=== PATIENT | female | born 1955 | race Caucasian/White ===

== ENCOUNTER → 2021-08-05 09:45 | Outpatient (CLI) | payer OTHER, SELFPAY ==
[2021-08-05 12:21] LABS: COVID19 -Nasal RAPID Negative (Negative)
== END ==
PROVIDERS: PCP Physician Assistant Medical; Visit Provider Family Medicine Sleep Medicine
DX: Z20.822 Contact with and (suspected) exposure to COVID-19 (principal)
CPT/HCPCS: 87635; C9803

== ENCOUNTER 2021-08-06 06:30 | Inpatient (IN) | payer OTHER, SELFPAY ==
[2021-08-05 07:24] VITALS: BMI 28.0
[2021-08-06] VITALS (17 sets, daily range): BP systolic 106–140; BP diastolic 23–66; PULSE 72–115; RESP 9–19; TEMP 35.4–37; O2SAT 93–100; BMI 28.0
[2021-08-06] MEDS: ACETAMINOPHEN 325 MG TABLET 975 MG PO (07:03)
[2021-08-06] MEDS: LACTATED RINGERS 1,000 ML 42 ML IV (07:21)
--- NOTE | 2021-08-06 07:38 | PM.PREOP ---
Pre-operative Note COVID-19 COVID-19 status: Negative Criteria for continued procedure: Expected advancement of disease process, Possibility delay results in more complex future surgery or treatment, Increased loss of function, Continuing or worsening of significant or severe pain, Deterioration of the patient's condition or overall health and Delay expected to result in less-positive ultimate med/surg outcome Interval Note History & Physical reviewed/Exam performed by Physician: Yes Changes to H&P: No
[2021-08-06] MEDS: CEFAZOLIN 2 GM/20 ML SYRINGE IV ×2 (08:14→17:09)
--- NOTE | 2021-08-06 08:32 | SUR.OPER ---
Supine, head on gel donut. Arms padded with gel pads, tucked at sides, towel roll under shoulders. Safety belt at thigh. Legs uncrossed.
[2021-08-06] MEDS: BUPIVACAINE LIPOSOME 266 MG/20 ML VIAL INJ (08:42)
[2021-08-06] MEDS: BUPIVACAINE 0.25% (PF) 30 ML, EPINEPHrine 0.3 MG INJ (08:43)
--- NOTE | 2021-08-06 08:44 | DIET.CONS ---
Dietary Consultation Note Admission Date: 08/06/2021 06:30 RD Note: 66y F in surgery for cervical fusion. Please assign pt SOFT diet when diet orders come through secondary to cervical fusion post-op state. Ht: 160.02 cm Wt: 71.668 kg BMI: UBW: Last BM: 08/06/21 (08/06/21 06:55) Electronically Signed by: Melissa Oneil 08/06/21 08:44 Clinical Dietitian [address] [address]
--- NOTE | 2021-08-06 11:22 | P.OP_ITS ---
Operative Date/Time/Diagnoses Date of procedure: 08/06/21 Time of procedure: 07:45 Pre-op diagnosis: 1. C4-5, C5-6, C6-7 spinal stenosis with myelopathy 2. 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 C4-5 C5-6 C6-7 anterior cervical diskectomy and fusion 2. C4-5 C5-6 C6-7 anterior interbody cage placement 3. C4-5 C5-6 C6-7 anterior instrumentation with plate and screw placement in C4-C5-C6 and C7 vertebrae 4. Utilization of microsurgical technique and operating microscope Same procedure as scheduled: Yes Indications: Patient has been having chronic neck pain and worsening cervical radiculopathy. Patient has been having progressive myelopathic symptoms with poor balance near constant numbness in bilateral upper extremity and poor coordination and fine motor control bilateral upper extremity. Patient has been having difficulty performing activity of daily living. After discussing risks benefits of treatment options, patient elected proceed with surgery. Surgeon: Simone Belcher Sba Business Development Officer: Linda Alejandro Click Yes if Unassisted: No Anesthesia Type: General Operative Notes Closure Type: primary Specimen(s): none sent Prosthetic devices, grafts, tissues, transplants, or devices: Globus Extend Plate, Titanium cages Applied: catheter Estimated Blood Loss (mL): 50 Blood products transfused: none Procedure in detail: Patient was seen in the preoperative area. Risks and benefits of the surgery was discussed with the patient. Operative consent was obtained and placed in the chart. Patient was then taken to the operative room. Prophylactic antibiotic was given less than 0.5 hr prior to skin incision. General anesthesia was administered. Patient was placed into a supine position on her radiolucent table. Bilateral shoulders were taped down to allow proper C-arm imaging. Anterior cervical area was prepped and draped in a sterile fashion. Time-out was performed at this time. Using lateral C-arm imaging, the level between C4 and C7 was identified and marked on patient's neck. A oblique incision from midline towards medial border of sternocleidomastoid muscle was made. The platysma muscle was incised in line with skin incision. Metzenbaum scissor was used to develop the plane between the medial border of sternocleidomastoid d and the strap muscles medially. The carotid sheath and its contents were identified and protected behind the hand- held retractor during the entire case. The plane between the carotid sheath and strap muscles was developed with Metzenbaum scissors. Dissection was made down to the level of the anterior cervical fascia. Longus colli muscle was incised on the anterior aspect of vertebral bodies bilaterally from C4-C7. Spinal needle was placed into the C4-5 disc space and confirmed with lateral C-arm imaging. Using microsurgical technique and operative microscope, anterior cervical diskectomy was performed at C4-5 C5-6 and C6-7 level. This was done by removing the disc material, removing the anterior and posterior osteophytes posterior longitudinal ligaments along with performing bilateral foraminotomies at all 3 levels. Patient was found to have severe central and foraminal stenosis at all 3 levels. There were fragments of disc as well as hypertrophied and partially calcified ligamentum flavum causing severe central and foraminal stenosis. The disc fragments along with the entire discs at all three levels along with ligamentum flavum was resected. Full decompression was accomplished. Patient's stenosis was fully decompressed after decompression was completed. After the diskectomy was completed, 3 anterior interbody cages were obtained. The cages were packed with DBM bone grafting material. One cage each along with the bone grafting material was then packed into the interbody spaces from C4-C7 with one cage into each interbody level. After the cages were placed, the anterior cervical plate was stabilized to the C4-C7 vertebrae using 2 screws at each each level. Total 8 screws were placed. After confirming placement of the hardware with AP and lateral C-arm imaging, the screws were locked into the plate using the locking mechanism and torque limiting screwdriver. After the hardware was placed and confirmed with AP and lateral C-arm imaging, the wound was irrigated with sterile normal saline. The platysma muscle and the subcutaneous tissue was closed with 2-0 Vicryl. The skin was closed with 4-0 Monocryl and Steri-Strips. Patient tolerated the procedure well. Patient was transferred recovery room in stable condition. There were no complications. Complications: none Post-operative Condition: stable Disposition: PACU Plan for aftercare: Admit to inpatient hospital
--- NOTE | 2021-08-06 11:30 | DI.RAD.S_ITS ---
PROCEDURE: XR CERVICAL SPINE 2V OR 3V INDICATIONS: C4-5-6-7 ACDF TECHNIQUE: Intraoperative fluoroscopic views of the cervical spine were acquired COMPARISON: None. FINDINGS: Bones: Fluoroscopic images demonstrate anterior fusion and discectomy from C4 through C7. IMPRESSION: C4-C7 anterior fusion and discectomy. Dictated by: Ivon Duke M.D. on 08/06/2021 at 12:16 Approved by: Ivon Duke M.D. on 08/06/2021 at 12:17
[2021-08-06] MEDS: HYDROMORPHONE 2 MG INJ IV (11:58)
[2021-08-06] MEDS: hydrOXYzine 50 MG/ML INJ 25 MG IM (12:00)
[2021-08-06] MEDS: OXYCODONE IR 5 MG TABLET PO ×2 (12:17→19:46)
[2021-08-06] MEDS: SODIUM CHLORIDE 0.9% 1,000 ML 100 ML IV ×2 (12:30→23:56)
--- NOTE | 2021-08-06 15:05 | OT.IPNOTE ---
Pt just up to the floor recently and asleep, to check on pt for OT eval tomorrow.
--- NOTE | 2021-08-06 16:47 | PT.IIE ---
Addendum entered and electronically signed by Rachel Anne PT 08/07/21 08:18: Correction to assessment summary: Bobbin Hauler strength impaired on the right UE - not on the left as originally documented. Original Note: Current Diagnoses Other spondylosis with myelopathy, cervical region (08/06/21) Spinal stenosis, cervical region (08/06/21) Surgery Performed Operation Date: 08/06/21 07:45 Actual Procedures p C4-5, C5-6, C6-7 ACDF w. anterior instrumentation - Simone Belcher MD Medical History (Last Reviewed 08/06/21 @ 06:54 by Eusebia Ramos RN) Arthritis Bronchitis (07/29/21) Cervical radiculopathy Easy bruisability HLD (hyperlipidemia) HTN (hypertension) Lumbar radiculopathy Melanoma (~2012) Physical Therapy Inpatient Evaluation/Re-Eval M1 PT/OT-IP Prior Functional Status Start: 08/06/21 16:16 Freq: NEEDED Status: Active Protocol: Document 08/06/21 16:47 AW (Rec: 08/06/21 17:18 AW [id number]) Medical Review Prior Functional Status Medical History Reviewed Yes Communication Pt is an effective verbal communicator. Mobility and Gait Pt can walk grocery store distances without assistive device. She is sometimes limited by left hip pain and she will use a cane during those times. She reports two serious/injurious falls in the past three years. Activities of Daily Living and IADL's Pt manages her own ADL''s but admits that her UE coordination has decreased in the past few months and she struggles with buttoning, zipping, and writing. She is right hand dominant. Social History Household Members family Living Arrangements House Number of Floors (Floors) One Floor Number of Stairs To Enter/Railing? Pt plans to stay with her sister for a week at discharge . Details in this note refer to that environment. There are 3 MARIA ISABEL with R rail ascending. 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 Her son is disabled but able to help around the house. Pt will discharge to her sister, Ольга quinones. M2 PT-IP Current Condition Start: 08/06/21 16:16 Freq: NEEDED Status: Active Protocol: Document 08/06/21 16:47 AW (Rec: 08/06/21 17:18 AW [id number]) Physical Therapy Current Condition Current Condition Evaluation Date 08/06/21 Treatment Diagnosis s/p C4-7 ACDF; dec independence with ADL's; falls Onset Date 08/06/21 M3 PT-IP Subjective Start: 08/06/21 16:16 Freq: NEEDED Status: Active Protocol: Document 08/06/21 16:47 AW (Rec: 08/06/21 17:18 AW [id number]) Subjective Physical Therapy Visit Type Type Initial Evaluation Visit Start Time 16:22 Visit Stop Time 16:47 Total Visit Minutes 25 Notes Pt's son, Oskar, was present throughout evaluation. Physical Therapy Visit Comments Patient Comments Pt is willing to participate with PT Patient Goals Discharge to her sister's house with assist. Therapy Pain Assessment Pain When Pain Assessed During Mobility Pain Present Pain Present Pain Reported Location neck Intensity 6 Scale Used Numeric (0 - 10) Pain Management Techniques Distraction,Modification of Treatment,Re-positioning M4 PT-IP Mobility and Gait Start: 08/06/21 16:16 Freq: NEEDED Status: Active Protocol: Document 08/06/21 16:47 AW (Rec: 08/06/21 17:18 AW [id number]) PT-Bed Mobility Assessment Rolling Type of Rolling Log Rolling,Roll to Right Level of Assist Minimal Assistance Supine to Sit Supine to Sit Minimal Assistance Sit to Supine Sit to Supine Contact Guard Assistance PT-Transfer Assessment Sit to and From Stand Sit to and from Stand Minimal Assistance,1 Person Assistance,2 Person Assistance Equipment Transfer Assistive Device Gait Belt,Front Wheeled Walker Orthotic/Prosthetic Devices or Brace: Yes Comments Mobility Comments Pt was lying in bed as PT arrived. BP was 111/41 HR 86 SpO2 94% on room air. Pt agreed to sit up EOB, rolling to her right and completing SL to sit min A and cues for neutral neck. She scooted forward to get feet on the floor. BP sitting was 110/35 HR 85. Pt denied lightheadedness or nausea. She attempted to place her hands on the walker but was unable to control RUE, needing min A/ [place] assist for placement. Pt was unable to maintain vision care associate on the walker with RUE. PT assisted pt with handhold as she stood min A. Pt was frustrated with inability to control her right arm and requested return to bed. She sat and reverse log-rolled to supine CGA. She was left with call light and tray table in reach. Her son remained in the room. Gait Assessment Comments Gait Comments Gait not assessed due to pt numbness. Stair Climbing Assessment Comments Stair Climbing Comments Not assessed. PT-Balance Assessment Sitting Balance and Reactions Static Sitting Balance Ability Good Dynamic Sitting Balance Ability Fair Standing Balance and Reactions Static Standing Balance Ability Fair Device Used FWW M5 PT-IP Objective Assessments Start: 08/06/21 16:16 Freq: NEEDED Status: Active Protocol: Document 08/06/21 16:47 AW (Rec: 08/06/21 17:18 AW [id number]) Orientation Orientation/Cognition Level of Alertness Alert Orientation Name,Day of Week,Place, Situation Language Function Ability No Deficits Noted Safety Awareness Understands Safety Issues Memory Description No Deficits Noted Gross Range of Motion Upper Extremity ROM Assessment Within Functional Limits Strength Upper Extremity Strength Assessment Bilaterally Impaired Shoulder R 3-/5; L 4/5 Wrist R 3+/5; L 4/5 Lower Extremity Strength Assessment Bilaterally Impaired Comments Strength Comments Grossly 4/5 Coordination Assessment Gross Coordination Gross Coordination Impaired Assessment Coordination Comments Pt unable to functionally elevate right arm or use right hand to vision care associate objects. Sensation Assessment Sensation Gross Sensation Right UE Impaired Light Touch Impaired Proprioception (Position) Impaired Sensation Description Numbness Muscle Tone Muscle Tone WNL Yes M6 PT-IP Treatment Start: 08/06/21 16:16 Freq: NEEDED Status: Active Protocol: Document 08/06/21 16:47 AW (Rec: 08/06/21 17:18 AW [id number]) Physical Therapy Treatment Education Education Provided Precautions,Post-Op Packet, Safety Other Treatments Other Treatment Performed Educated pt on PT plan of care , post op precautions, and recommendation for soft collar . M7 PT-IP Assessment and Plan Start: 08/06/21 16:16 Freq: NEEDED Status: Active Protocol: Document 08/06/21 16:47 AW (Rec: 08/06/21 17:18 AW [id number]) PT Summary Assessment and Plan Potential Rehabilitation Potential Good Status of Condition at Evaluation Unstable Summary Impairments Pain,Strength,Coordination, Sensation,Bed Mobility, Transfers,Gait Assessment Summary Ruth is a 66 yo woman seen for PT evaluation on POD0 following C4-7 ACDF. Preoperatively, she had MRI evidence of myelopathy; clinically, she had BUE weakness and incoordination ( right more affected than left) . She is independently mobile at baseline but occasionally uses a SPC if her left hip pain is worse than usual. On limited assessment today, pt was unable to functionally elevate her right arm or to vision care associate objects with her left hand, complaining of numbness and weakness which seemed worse than before surgery. RN was informed. PT will re- assess in the morning for safe discharge plan. At this time, pt plans to discharge to her sister's house and her sister will be able to care for her. Goals Bed Mobility Goal Independent Transfer Goal Standby Assistance,Front Wheeled Walker Gait Goal Standby Assistance,Front Wheel Walker Gait Distance 200 Other Goals -- up/down 3 steps with R rail ascending -- improve transfers and gait to SBA with SPC or no AD Days to Meet Goals 3 Frequency of Treatment Frequency Of Treatment Twice a Day Treatment Plan Physical Therapy Treatment Plan Bed Mobility Training,Transfer Training,Gait Training, Therapeutic Exercise,Balance Retraining,Post Op Education, Discharge Planning,Hot or Cold Pack,Neuromuscular Re-ed, Coordination Retraining Other Recommendations and Next Treatment re-assess RUE strength; assess Focus transfers and gait Precautions Cervical Spine Precautions Soft Collar for Comfort,No Heavy Lifting,Log Roll Other Precautions falls Recommendations To Nursing Amount of Assist Needed 1 Person Assist Discharge Recommendations PT Discharge Recommendations Home with Assistance,Home with 24/7 Assist Available Transportation Needs at Discharge Private Vehicle
[2021-08-06] MEDS: HYDROMORPHONE 0.5 MG INJ IV ×2 (18:08→20:58)
[2021-08-06] MEDS: hydrOXYzine pamoate 25 MG CAPSULE PO (19:45)
[2021-08-06] MEDS: DOCUSATE 100 MG CAPSULE PO (20:33)
[2021-08-06] MEDS: SENNOSIDES 8.6 MG TABLET 17.2 MG PO (20:33)
[2021-08-06] MEDS: GABAPENTIN 400 MG CAPSULE 800 MG PO (20:34)
[2021-08-07] MEDS: CEFAZOLIN 2 GM/20 ML SYRINGE IV (01:24)
[2021-08-07] MEDS: OXYCODONE IR 5 MG TABLET PO ×4 (01:28→14:18)
[2021-08-07 01:35] VITALS: BP 129/61; PULSE 76; RESP 16; TEMP 36.5; O2SAT 93
[2021-08-07] MEDS: HYDROMORPHONE 0.5 MG INJ IV (02:10)
[2021-08-07 07:00] VITALS: BP 138/59; PULSE 86; RESP 20; TEMP 36.7; O2SAT 94
--- NOTE | 2021-08-07 07:33 | PM.DS.1 ---
History of Present Illness History of Present Illness Date Patient Seen: 08/07/21 Time Patient Seen: 07:34 Chief complaint: Neck pain Narrative: Patient's neck pain is [id number]. Denies fever or chills. No nausea or vomiting. She does notice weakness with her right biceps. Numbness and tingling bilateral upper extremities present prior to surgery. No shortness of breath or difficulty swallowing. Otherwise without complaints. Discharge Providers Provider Date of admission: 08/06/21 06:30 Discharge Date: 08/07/21 Primary care physician: Sailaja Augustine PA-C Consults: 08/02/21 12:59 Consult to Anesthesiology Routine Comment: Consulting Provider: Anesthesiologist Reason for consultation: PAC courtesy re: Abnormal pre-op ECG 08/06/21 13:11 Consult to Occupational Therapy Evaluate & Treat Comment: Physician Instructions: Evaluate and treat Consult to Physical Therapy Evaluate & Treat Comment: Physician Instructions: Evaluate and Treat Discharge provider: Red Pantoja PA-C Summary Hospital Course Discharge Diagnosis: 1. C4-5, C5-6, C6-7 spinal stenosis with myelopathy 2. C4-5, C5-6, C6-7 spondylosis with myelopathy Hospital Course: .? C4-5 C5-6 C6-7 anterior cervical diskectomy and fusion 2.? C4-5 C5-6 C6-7 anterior interbody cage placement 3.? C4-5 C5-6 C6-7 anterior instrumentation with plate and screw placement in C4-C5-C6 and C7 vertebrae 4.? Utilization of microsurgical technique and operating microscope Same procedure as scheduled: Yes Indications: Patient has been having chronic neck pain and worsening cervical radiculopathy. Patient has been having progressive myelopathic symptoms with poor balance near constant numbness in bilateral upper extremity and poor coordination and fine motor control bilateral upper extremity. Patient has been having difficulty performing activity of daily living.? After discussing risks benefits of treatment options, patient elected proceed with surgery. Surgeon: Simone Belcher Fertilizer Applicator: Linda Alejandro Click Yes if Unassisted: No Anesthesia Type: General Operative Notes Closure Type: primary Specimen(s): none sent Prosthetic devices, grafts, tissues, transplants, or devices: Globus Extend Plate, Titanium cages Applied: catheter Estimated Blood Loss (mL): 50 Blood products transfused: none Patient admitted for the above-mentioned procedure. Patient consented to the same. Patient taken operating room underwent cervical fusion on August 06, 2021. Patient back in her room recovering well as in stable condition. Patient will be discharged home today in stable condition. Status at Discharge Cognitive/behavioral status at discharge: at baseline, oriented Functional status at discharge: independent ambulation Overall status at discharge: patient is progressing back to baseline Exam Vital Signs (past 8 hours): - 08/07/21 01:35 Temperature 97.7 F Pulse Rate 76 Respiratory Rate 16 Blood Pressure 129/61 Pulse Oximetry 93 Oxygen Delivery Method Nasal Cannula Oxygen Flow Rate 1 Narrative Exam Narrative: 66-year-old female resting comfortably in bed in no apparent distress. Dressing is Clean, dry, intact.. Soft collar is in place. She has 3/5 strength with elbow flexion on the right, 5/5 on left. She has 5/5 strength with elbow extension, wrist flexion and extension, finger flexion bilaterally. Sensation is slightly diminished to the medial/ulnar right hand. Sensation grossly intact to light touch otherwise right upper and left upper extremities. Const General: cooperative and comfortable Orientation: alert Resp Effort & Inspection: normal respiratory effort PFSH Medical History Arthritis Bronchitis (07/29/21) Cervical radiculopathy Easy bruisability HLD (hyperlipidemia) HTN (hypertension) Lumbar radiculopathy Melanoma (~2012) Surgical History History of 2 sections History of bunionectomy of right great toe Hx of cholecystectomy Hx of removal of cyst Hx of tonsillectomy Social History household members: family Smoking Status: Former smoker alcohol intake: current Discharge Assessment & Plan Assessment and Plan Assessment: Patient progressing as expected status post cervical fusion Plan of Treatment: Soft collar for comfort Multimodal pain management Discharge home today in stable condition Follow-up scheduled [facility] in 2 weeks Discharge Plan Discharge Plan Patient Disposition: Home Provider Discharge Comment: Discharge home after physical therapy Discharge orders & Medications Prescriptions: New acetaminophen 325 mg Tablet 650 mg PO Q6HR PRN (Reason: Pain, Mild (1-3)) Qty: 60 0RF docusate sodium 100 mg Capsule 100 mg PO BID Qty: 20 0RF oxycodone 5 mg Tablet 5 mg PO Q3HR PRN (Reason: Pain, Moderate (4-6)) Qty: 40 0RF hydroxyzine pamoate 25 mg Capsule 25 mg PO Q4HR PRN (Reason: Nausea And Vomiting) Qty: 20 0RF Continued aspirin 81 mg Tablet,Delayed Release (Dr/Ec) 81 mg PO DAILY 0RF gabapentin 800 mg Tablet 800 mg PO TID 0RF amlodipine 10 mg Tablet 10 mg PO DAILY 0RF albuterol sulfate 90 mcg/actuation Hfa Aerosol Inhaler 2 puff INHALATION Q4-6H PRN (Reason: Shortness Of Breath) 0RF losartan 100 mg Tablet 100 mg PO DAILY 0RF Discontinued ibuprofen 800 mg Tablet 800 mg PO BID 0RF Follow up/Referrals: Sailaja Augustine PA-C [Primary Care Provider] - Simone Belcher MD [Physician] - (2 weeks) Diet/Activity/Treatments Diet: Diet as Tolerated Activity: Limit bending, twisting, lifting Skin/Wound/Dressing Care Report to your healthcare provider any signs of infection, such as:: chills, fever, increased pain, unusual drainage and unusual redness Dressing: May shower, keep dressing clean and dry Visit Report/Discharge Packet Instructions: DI for Prescription Opioid Use, DI for Anterior Cervical Discectomy and Fusion Stand Alone Forms: Surgery Discharge Discharge Data Primary Care Provider: Sailaja Augustine
[2021-08-07] MEDS: DOCUSATE 100 MG CAPSULE PO (07:56)
[2021-08-07] MEDS: GABAPENTIN 400 MG CAPSULE 800 MG PO ×2 (07:56→14:18)
[2021-08-07] MEDS: hydrOXYzine pamoate 25 MG CAPSULE PO ×2 (07:56→12:58)
--- NOTE | 2021-08-07 09:03 | OT.IP.EVAL ---
Current Diagnoses Other spondylosis with myelopathy, cervical region (08/06/21) Spinal stenosis, cervical region (08/06/21) Surgery Performed Operation Date: 08/06/21 07:45 Actual Procedures p C4-5, C5-6, C6-7 ACDF w. anterior instrumentation - Simone Belcher MD Past Medical History (Last Reviewed 08/07/21 @ 07:37 by Red Pantoja PA-C) Arthritis Bronchitis (07/29/21) Cervical radiculopathy Easy bruisability History of 2 sections History of bunionectomy of right great toe HLD (hyperlipidemia) HTN (hypertension) Hx of cholecystectomy Hx of removal of cyst Hx of tonsillectomy Lumbar radiculopathy Melanoma (~2012) Surgical History (Last Reviewed 08/07/21 @ 07:37 by Red Pantoja PA-C) History of 2 sections History of bunionectomy of right great toe Hx of cholecystectomy Hx of removal of cyst Hx of tonsillectomy Occupational Therapy Inpatient Evaluation/Re-Eval M1 PT/OT-IP Prior Functional Status Start: 08/06/21 16:16 Freq: NEEDED Status: Active Protocol: Document 08/07/21 09:03 [facility] (Rec: 08/07/21 12:50 [facility] [id number]) Medical Review Prior Functional Status Medical History Reviewed Yes Communication Pt is an effective verbal communicator. Mobility and Gait Pt can walk grocery store distances without assistive device. She is sometimes limited by left hip pain and she will use a cane during those times. She reports two serious/injurious falls in the past three years. Activities of Daily Living and IADL's Pt manages her own ADL''s but admits that her UE coordination has decreased in the past few months and she struggles with buttoning, zipping, and writing. She is right hand dominant. Prior Functional Level (Other details) Pt to stay at her sister's house. Social History Household Members family Living Arrangements House Number of Floors (Floors) One Floor Number of Stairs To Enter/Railing? 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 Her son is disabled but able to help around the house. Pt will discharge to her sister, Shazia's house. M2 OT-IP Current Condition Start: 08/07/21 12:36 Freq: Status: Active Protocol: Document 08/07/21 09:03 [facility] (Rec: 08/07/21 12:50 [facility] [id number]) Occupational Therapy Current Condition Current Condition Evaluation Date 08/07/21 Treatment Diagnosis S/p C4-5, C5-6, C6-7 ACDF Diagnosis Onset Date 08/06/21 Post Operative Precautions Cervical Spine Precautions Soft Collar for Comfort,No Heavy Lifting,Log Roll M3 OT- IP Subjective and Pain Start: 08/07/21 12:36 Freq: Status: Active Protocol: Document 08/07/21 09:03 [facility] (Rec: 08/07/21 12:50 [facility] [id number]) OT- Subjective Occupational Therapy Visit Type Type Initial Evaluation Visit Start Time 09:03 Visit Stop Time 10:00 Total Visit Minutes 57 Occupational Therapy Visit Comments Patient Comments Pt wanting to get up. Pt's sister present during the session. Patient/Caregiver Goals TO go home. OT Pain Assessment Pain When Pain Assessed At Rest Pain Present Pain Present Pain Reported Location neck Intensity 8 Scale Used Numeric (0 - 10) M4 OT- IP ADL's Start: 08/07/21 12:36 Freq: Status: Active Protocol: Document 08/07/21 09:03 [facility] (Rec: 08/07/21 12:50 [facility] [id number]) OT [id number] Comments OT Self-Feeding Comments Educated on safety suggestions after ACDF, chew food thoroughly, sit upright, etc. .. OT ADL-Oral Care Comments Oral Care Comments Educated easier to spit into a cup at this time. OT ADL-Dressing Comments OT Dressing Comments Pt not able to reach up with right hand to assist to rosa/ doff the soft collar and will need assist from her sister. OT ADL-Toileting Comments OT Toileting Comments Pt not having to go at this time. OT ADL-Bathing Comments OT Bathing Comments NOt performed. M5 OT- IP IADL's Start: 08/07/21 12:36 Freq: Status: Active Protocol: Document 08/07/21 09:03 [facility] (Rec: 08/07/21 12:50 [facility] [id number]) OT-Instrumental Activities of Daily Living Home Safety Awareness Home Safety Comments At this time due to pt's decreased balance, functional use of RUE would be best for her sister to assist with all ADl and IADL needs. M6 OT- IP Functional Cognition Start: 08/07/21 12:36 Freq: Status: Active Protocol: Document 08/07/21 09:03 [facility] (Rec: 08/07/21 12:50 [facility] [id number]) Cognitive Factors Limiting Selfcare Function Cognitive Ability Level of Alertness Alert,Drowsy Attention Span Ability Capable of Focused Attention, Capable of Sustained Attention Ability to Follow Commands Able to Follow One Step Commands with Increased Time, Able to Follow One Step Commands with Repetition Cognitive Comments Cognitive Assessment Comments Pt a bit groggy and needing step by step commands and also a little impulsive when getting up. OT- Vision and Hearing OT- Vision Assessment Visual Acuity Glasses All The Time M7 OT- IP Mobility and Balance Start: 08/07/21 12:36 Freq: Status: Active Protocol: Document 08/07/21 09:03 [facility] (Rec: 08/07/21 12:50 [facility] [id number]) OT- Bed Mobility Assessment Rolling Type of Rolling Roll to Right Level of Assistance Standby Assistance,Contact Guard Assistance Supine to Sit Supine to Sit Assist Standby Assistance,Minimal Assistance Sit to Supine Sit to Supine Assist Standby Assistance,Contact Guard Assistance Scooting Scooting to Edge of Bed Contact Guard Assistance OT-Transfer Assessment Sit to and From Stand Sit to and from Stand Moderate Assistance Transfers Transfer Ability Moderate Assistance Technique Transfer Destination Bed,Chair Transfer Technique Stand Step Pivot Devices Transfer Assistive Devices Gait Belt,Front Wheeled Walker Comments Mobility Comments ACE to help get upright from side lying as unable to push up with her right UE initially. MODA to stand and assist to hold her right hand on the FWW and assist to help push on the right side of the FWW. Pt was very unsteady on her feet. OT- Balance Assessment Sitting Balance and Reactions Static Sitting Balance Ability Fair Dynamic Sitting Balance Ability Poor Standing Balance and Reactions Static Standing Balance Ability Poor M8 OT- IP Objective Assessments Start: 08/07/21 12:36 Freq: Status: Active Protocol: Document 08/07/21 09:03 [facility] (Rec: 08/07/21 12:50 [facility] [id number]) OT Gross Range of Motion Upper Extremity Range of Motion Assessment Right Impaired OT Strength Upper Extremity Strength Assessment Right Impaired Comments Strength Comments RUE 3-/5 to 3+/5 OT Sensation Assessment Comments Summary Comments Intact for light touch, however complaining of numbness in right UE. M9 OT- IP Assessment and Plan Start: 08/07/21 12:36 Freq: Status: Active Protocol: Document 08/07/21 09:03 [facility] (Rec: 08/07/21 12:50 [facility] [id number]) OT Summary Assessment and Plan Potential Rehabilitation Potential Good Analytic Complexity at Evaluation Low Summary OT Impairments Pain,Range of Motion,Strength, Balance,Functional Cognition, Functional Mobility,Self- Feeding,Grooming,Dressing, Toileting,Bathing,Toilet Transfers,Shower Transfers, Activity Tolerance Progress Towards Goals Slow Progress due to Pain,Slow Progress due to Medical Issues,Slow Progress due to Activity Tolerance Assessment Summary Pt low complexity and now having difficulty to use her RUE and and needing SAVOONGA assist to help hold her right hand on the FWW and assist to help guide the right side of the FWW. Pt is very groggy and having difficulty to follow directions and is a little impulsive. Pt would possibly benefit form short rehab stay pending progress and caregiver training with her sister. Goals Self-Feeding Goal Independent Grooming Goal Independent Dressing Goal Independent Toileting Goal Independent Bathing Goal Independent Toilet Transfer Goal Independent Shower Transfer Goal Independent Patient/Caregiver Education Goal Caregiver Independent Assisting Patient Days to Meet Goals 57 Frequency of Treatment Frequency Of Treatment Once a Day Treatment Plan OT Treatment Plan ADL Training,Functional Cognition Training,Functional Mobility,Patient/Family Education,Discharge Planning Other Treatment Recommendations and Next shower if still here Treatment Focus Discharge Recommendations OT Discharge Recommendations Home with 17/11 Assist Available,Home Health,SNF Rehab,Home vs SNF Transportation Needs at Discharge Private Vehicle,Wheelchair/ Cabulance
--- NOTE | 2021-08-07 10:26 | CM.DANOTE ---
DCP: Case received, EMR reviewed. Met with patient in her room. Sister was at bedside. Introduced self and role. Was able to obtain information regarding patient's baseline activity level prior to her surgery, as well as her current living situation. DCP assessment completed with information currently available. Patient is a 66 year old female who admitted yesterday morning to the care of the orthopedic team. PCP: Dr. Augustine. Payer: confirmed: [employer]. Patient came to the hospital for a surgical procedure. Patient had C4-5, C5-6, C6-7 anterior cervical diskectomy and fusion. Patient has history of spondylosis with myelopathy. Met with patient in her room. Her sister was also at bedside. Patient resides in [place] with her son, Oskar. She will be staying with her sister in [place] while she is recuperating from surgery. They have 2 steps to get into the home. Patient is a . At her baseline, she is independent. P: Patient has discharge orders for home today pending working with P.T. Tricia Garg RN/Photograph Developer Discharge Planning/Care Management Advanced directive, confirm from FAMILY Start: 08/06/21 16:20 Freq: Q24H Status: Active Protocol: Document 08/06/21 16:20 (Rec: 08/06/21 22:24 [id number]) Advance Directive, confirm on record Time 20:00 Person contacted patient Copy received Yes Document 08/07/21 03:57 (Rec: 08/07/21 03:57 [id number]) Advance Directive, confirm on record Time 20:00 Person contacted patient Copy received Yes Discharge Assessment Start: 08/07/21 10:24 Freq: Status: Active Protocol: Document 08/07/21 10:24 (Rec: 08/07/21 10:26 [id number]) Discharge Planning Assessment Assigned Insurance Collector Tricia Garg RN/Photograph Developer Advance Directives? Yes Advance Directives on File No History Provided By Patient,Medical Record Prior Living Arrangements House Household Members family Type of transporation used prior to Drives own vehicle admit Independent with ADL's Yes Is patient alert and oriented? Yes Barriers to Discharge No Comment Patient will be staying at her sister's house in [place]. Discharge Plan Home Transportation Arrangement Sister Referrals Initiated None needed Whiteboard Updated in Patient Room with Yes name and ext. # of Insurance Collector Review Status In Process Next Review Type Continued Stay Review Pre-Anesthesia Assessment Start: 08/02/21 11:48 Freq: Status: Active Protocol: Document 08/05/21 07:24 [facility] (Rec: 08/02/21 12:59 CAB [id number]) Pre-Anesthesia Assessment PAC Comment Pre-op ECG reviewed with neto owusu to proceed Patient Information Reviewed Via Phone Assessment Assessment Completed With Patient Diagnostic Results BMP/CMP,CBC,EKG Comment Outside labes/ECG scanned, COVID screen @ [facility] 08/05/21 Primary Care Provider Sailaja Augustine Seen Specialist in Last 12 Months Yes Specialist Seen Orthopedist,Other Comment Neuro:Dr. Romero. 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 No Does patient have TY/SOB Yes: Only when sick Hx Sleep Apnea No Currently Taking a Beta Danny No Hx Chest Pain No Hx SOB Yes Hx Syncope or Dizziness No Anti-Coagulant Therapy No Has a Air Compressor Engineer No Cardiac Testing No Hx Pacemaker/ICD No Pacemaker Rep Required? No Diet Type At Home Regular dysphagia No Bladder Pattern Urgency Urinary Catheter Present No Hx Urinary Self Catheterization No Diabetes No Patient No Lactating No Presence of External or Internal Medical Yes: Right great toe Devices Have you had any close contact with No someone diagnosed with COVID-19? Received a COVID vaccine? No Marital Status / Lives With family Prior Living Arrangements House Number of Floors (Floors) One Floor Support System Child/Children,Sibling(s) Does the Patient Have Assistance After Yes: Pt will go to sister's Surgery house for assistance at DC Patient Discharge Plan Description Other Comment Pt not advised on length of stay per surgeon Feels Safe in Current Environment Yes Been Physically Hurt or Threatened By a No Person in Current Environment Do you have thoughts of harming yourself None or others? Are you currently considering suicide? No Do you have a plan to hurt yourself or No Plan others? Do You Have Any Spiritual Beliefs That No May Affect Your HC Choices? Do You Have Any Cultural Practices That No May Affect Your HC Choices? Who Can We Speak to About Patient's Care Family, friends Identifying Code for Release of Patient Declines to issue Information Health Care Proxy/Next of Kin Magaly (Daughter in-law) Elías (son) Health Care Proxy Phone Number Magaly: [phone] Elías: [phone] Emergency Contact Name Magaly (Daughter in-law) Elías (son) Emergency Contact Phone Number Magaly: [phone] Elías: [phone] Advance Directives? Yes Advance Directives on File No Requested Patient Bring Advanced Yes Directives DOS Power of Traveling Sales Executive Yes Power of Traveling Sales Executive Name Magaly Power of Traveling Sales Executive PAC Instructions Durable medical equipment, Medications to take/avoid, Nasal antibiotic,No ETOH/ petroleum product on skin DOS, NPO,Post-op transportation,Pre -surgical wash,Sensory aids, Sturdy shoes/comfortable clothes,Do not bring valuables and remove jewelry
[2021-08-07 10:39] VITALS: BP 127/56; PULSE 70
[2021-08-07] MEDS: LOSARTAN 50 MG TABLET 100 MG PO (10:39)
[2021-08-07] MEDS: AMLODIPINE 5 MG TABLET 10 MG PO (10:43)
[2021-08-07 11:00] VITALS: BP 126/61; PULSE 68; RESP 20; TEMP 36.6; O2SAT 96
--- NOTE | 2021-08-07 12:08 | PT.IPTN ---
Current Diagnoses Other spondylosis with myelopathy, cervical region (08/06/21) Spinal stenosis, cervical region (08/06/21) Surgery Performed Operation Date: 08/06/21 07:45 Actual Procedures p C4-5, C5-6, C6-7 ACDF w. anterior instrumentation - Simone Belcher MD Physical Therapy Treatment Note M2 PT-IP Current Condition Start: 08/06/21 16:16 Freq: NEEDED Status: Active Protocol: Document 08/07/21 11:44 SP (Rec: 08/07/21 14:09 SP [id number]) Physical Therapy Current Condition Current Condition Evaluation Date 08/06/21 Treatment Diagnosis s/p C4-7 ACDF; dec independence with ADL's; falls Onset Date 08/06/21 M3 PT-IP Subjective Start: 08/06/21 16:16 Freq: NEEDED Status: Active Protocol: Document 08/07/21 11:44 SP (Rec: 08/07/21 14:09 SP [id number]) Subjective Physical Therapy Visit Type Type Treatment Note Visit Start Time 11:44 Visit Stop Time 12:08 Total Visit Minutes 24 Notes Pt's sister present, donned gait belt, completed caregiver training, provided all physical assist required throughout tx. Number of PROTECTION CONSULTANT Visits 1 Physical Therapy Visit Comments Patient Comments Pt is willing to participate with PT Patient Goals Discharge to her sister's house, will assist her. Therapy Pain Assessment Pain When Pain Assessed During Mobility Pain Present Pain Present Pain Reported Location neck Intensity 5 Scale Used Numeric (0 - 10) Description With Movement Pain Behaviors Facial Grimacing Pain Management Techniques Distraction,Modification of Treatment,Re-positioning, Timing of Activity with Medications M4 PT-IP Mobility and Gait Start: 08/06/21 16:16 Freq: NEEDED Status: Active Protocol: Document 08/07/21 11:44 SP (Rec: 08/07/21 14:09 SP [id number]) PT-Bed Mobility Assessment Rolling Type of Rolling Roll to Right Level of Assist Standby Assistance Supine to Sit Supine to Sit Contact Guard Assistance, Minimal Assistance Sit to Supine Sit to Supine Standby Assistance Scooting Scooting to Edge of Bed Standby Assistance PT-Transfer Assessment Sit to and From Stand Sit to and from Stand Contact Guard Assistance, Minimal Assistance,1 Person Assistance,Use of Upper Extremities Equipment Transfer Assistive Device Gait Belt,Front Wheeled Walker Orthotic/Prosthetic Devices or Brace: Yes Transfers Transfer Destination Bed,Chair,Toilet Transfer Technique pt ambulated using FWW Transfer Ability Level of Assist Contact Guard Assistance, Minimal Assistance,1 Person Assistance,Use of Upper Extremities Comments Mobility Comments Pt was seated in chair when arrived, sister in room. Sister donned gait belt around trunk. Scoot to EOChair using BUE, support for handoverhand RUE for stability scoot/stand and intial gait, sit>stand Min A initially, gait to bathroom w/FWW little trunk sways but pt stated trying keep self centered in walker corrections. pivot front toilet and back up fully. Ed sister positioning assimulation front at home and grasp on gait belt for support, cue to pt use grab bar as has counter on L at home descend to toilet Min A. Sister provided trunk support at gait belt 5%A for safety during R lean to allow self pericare w/ LUE, both understood may need provide more assist for BM at home and how get all needs in reach prior to mobility, verbalized understanding. Sit>stand Min A using RUE on FWW and LUE on grab bar. Pt progressed gait to sink 8 ft, improved RUe grasp on FWW, faced sink CGA self wash hands little trunk lean on sink for stabililty. Pt returned to chair CG- Min A w/ FWW, cued back up fully w/ FWW, good BUEreach back and CG-5%A sit in chair back fully . PROTECTION CONSULTANT acquried w/c, pt Sit> stand from chair w/ FWW CGA pushed with BUE on chair arm, progressed gait to hallway down to stairs approx 80ft ascend/descend 2 PF step L UE on L HR CGA- 5%A then 3 stairs L HR after stated does have more than 1 step ( 2) consecutive inside house, receiprocal stepping L HR CGA. Pt walked back to room w/ FWW cGA self managed FWW BUE, fair grasp on R, step over step patterning no LOB, slight sway but self corrections. Pt returned to bed complete sit< >R SL<> supine LE support as needed and good LR technique. Pt remained in bed when done. Had call light an all needs in reach before left. Sister in room before left. Pt is ok to return home with sister when medicallly cleared. Gait Assessment Gait Gait Assistance Required: Contact Guard Assist,Minimum Assistance,1 Person Assist Distance (Feet) 160 Able to Maintain Weight Bearing Status Yes During Gait Assistive Devices Assistive Device Gait Belt,Front Wheeled Walker Orthotic/Prosthetic Devices or Brace: Yes Gait Deviations General Gait Pattern Antalgic Factors Limiting Gait Function Factors Limiting Gait Function Decreased Activity Tolerance, Decreased Strength,Pain,Poor Balance,Poor Safety Awareness Comments Gait Comments See mobility comments Stair Climbing Assessment Evaluation Level of Assist On Stairs Contact Guard Assistance, Minimal Assistance,1 Person Assistance Devices Stair Climbing Assistive Devices Left Railing Technique/Endurance Stair Climbing Direction Ascend and Descend Stair Climbing Technique Step Over Step,Step to Step Number of Steps Climbed 1 Stair Climbing Set # Repetitions (reps) 2 Comments Stair Climbing Comments COmplete 2 PF step L HR then 3 consecutive receiprocal steps L HR not need RUE support, CGA- 5%A by sister, no deviations or LOB. PT-Balance Assessment Sitting Balance and Reactions Static Sitting Balance Ability Good Dynamic Sitting Balance Ability Fair Standing Balance and Reactions Static Standing Balance Ability Good Dynamic Standing Balance Ability Fair Device Used FWW M5 PT-IP Objective Assessments Start: 08/06/21 16:16 Freq: NEEDED Status: Active Protocol: Document 08/06/21 16:47 AW (Rec: 08/06/21 17:18 AW [id number]) Orientation Orientation/Cognition Level of Alertness Alert Orientation Name,Day of Week,Place, Situation Language Function Ability No Deficits Noted Safety Awareness Understands Safety Issues Memory Description No Deficits Noted Gross Range of Motion Upper Extremity ROM Assessment Within Functional Limits Strength Upper Extremity Strength Assessment Bilaterally Impaired Shoulder R 3-/5; L 4/5 Wrist R 3+/5; L 4/5 Lower Extremity Strength Assessment Bilaterally Impaired Comments Strength Comments Grossly 4/5 Coordination Assessment Gross Coordination Gross Coordination Impaired Assessment Coordination Comments Pt unable to functionally elevate right arm or use right hand to vp outcomes objects. Sensation Assessment Sensation Gross Sensation Right UE Impaired Light Touch Impaired Proprioception (Position) Impaired Sensation Description Numbness Muscle Tone Muscle Tone WNL Yes M6 PT-IP Treatment Start: 08/06/21 16:16 Freq: NEEDED Status: Active Protocol: Document 08/07/21 11:44 SP (Rec: 08/07/21 14:09 SP [id number]) Physical Therapy Treatment Education Education Provided Precautions,Post-Op Packet, Safety M7 PT-IP Assessment and Plan Start: 08/06/21 16:16 Freq: NEEDED Status: Active Protocol: Document 08/07/21 11:44 SP (Rec: 08/07/21 14:09 SP [id number]) PT Summary Assessment and Plan Potential Rehabilitation Potential Good Status of Condition at Evaluation Unstable Summary Impairments Pain,Strength,Coordination, Sensation,Bed Mobility, Transfers,Gait Progress Towards Goals Progressing Toward Goals,Slow Progress due to Pain,Slow Progress due to Activity Tolerance Assessment Summary Pt improved mobility with decrease support required from sister during tx. CG- Min A throughout tx using FWW. Pt improved RUE grasp as tx progressed. Pt completed stair mgt CG- Min A L HR only required, stable, progressed gait 160 ft w/ FWW cGA-5%A wtih sister. Pt is ok to return home with sister to support her when medically cleared. Goals Bed Mobility Goal Independent Transfer Goal Standby Assistance,Front Wheeled Walker Gait Goal Standby Assistance,Front Wheel Walker Gait Distance 200 Other Goals -- up/down 3 steps with R rail ascending -- improve transfers and gait to SBA with SPC or no AD Days to Meet Goals 3 Frequency of Treatment Frequency Of Treatment Twice a Day Treatment Plan Physical Therapy Treatment Plan Bed Mobility Training,Transfer Training,Gait Training, Therapeutic Exercise,Balance Retraining,Post Op Education, Discharge Planning,Hot or Cold Pack,Neuromuscular Re-ed, Coordination Retraining Other Recommendations and Next Treatment RUE strengthening, progress Focus gait w/ FWW or LRAD, balance activities. Precautions Cervical Spine Precautions Soft Collar for Comfort,No Heavy Lifting,Log Roll Other Precautions falls Recommendations To Nursing Amount of Assist Needed 1 Person Assist Discharge Recommendations PT Discharge Recommendations Home with Assistance,Home with 24/ Assist Available,Home Health Transportation Needs at Discharge Private Vehicle
--- NOTE | 2021-08-07 15:25 | PC.NURSE ---
Pt discharged at 1515, escorted off floor in wheelchair accompanied by hospital staff and sister. IV removed, discharge teaching completed including follow up appointments, medications and wound care. Questions answered. Pt left the unit with all belongings.
== END 2021-08-07 15:27 | disposition home or self-care (01) | DRG 473 ==
PROVIDERS: Admitting Provider Orthopaedic Surgery Orthopaedic Surgery of the Spine; PCP Physician Assistant Medical; Referring Provider Orthopaedic Surgery Orthopaedic Surgery of the Spine; Visit Provider Orthopaedic Surgery Orthopaedic Surgery of the Spine
PROC: 0RG20A0 Fusion of 2 or more Cervical Vertebral Joints with Interbody Fusion Device, Anterior Approach, Anterior Column, Open Approach (ICD-10-PCS; principal; 2021-08-06 07:45)
DX: M47.12 Other spondylosis with myelopathy, cervical region (principal); M48.02 Spinal stenosis, cervical region; M67.88 Other specified disorders of synovium and tendon, other site; I10 Essential (primary) hypertension; J45.909 Unspecified asthma, uncomplicated; F17.210 Nicotine dependence, cigarettes, uncomplicated; Z20.822 Contact with and (suspected) exposure to COVID-19
CPT/HCPCS: 72040; 76000; 82962; 97116; 97162; 97165; 97530; 97535; C9290; J0171; J0690; J1100; J1170; J2250; J2405; J2704; J3010; J3410